=== PATIENT | female | born 1965 | race Two or more races ===

== ENCOUNTER 2024-08-23 19:29 | Observation (INO) ==
--- NOTE | 2024-08-23 20:02 | DR.AMS ---
HPI Time Seen Time Seen by Provider: 08/23/24 20:01 PCP Primary Care Physician: PHILL VERNON HPI Comment HPI Comment: History as below. Complaint Cheif Complaint Doctors Comments: Patient is 59yr old female in ER via EMS. Her friend said patient has been coughing and has been confused for 4 days. Patient is worse today. He is not running fever, no vomiting, diarrhea or dysuria. She is weak and fatigue. Chief Complaint:: PT AMBULATORY IN ED WITH FRIEND STATING PT HAS BEEN COUGHING AND CONFUSED FOR THE PAST 4 DAYS. COVID-19 Coronavirus risk:travel/contact w/high risk person: No Has patient experienced Coronavirus symptoms: Yes Coronavirus symptoms experienced: Coughing Reviewed Nurses Notes Reviewed: Yes Source History Provided: Patient Mode of Arrival Mode of Arrival: Ambulatory Timing Onset of Chief Complaint: 08/19/24 PMH PMH Past Medical History: Yes Past Medical History: Anxiety, Arthritis and Depression Past Surgical History: Yes Surgical History: Tonsillectomy Family History History of Family Medical Conditions: Yes Family Medical History: Cancer Social History Does patient currently use any type of tobacco product: No Have you used tobacco products in the last 12 months: No Type of Tobacco Use: None Does any household member use tobacco: No Alcohol Use: None Do you use any recreational Drugs:: Yes (MARIJUANA) Lives With: Friend Lives Where: Home Travel Risk Coronavirus risk:travel/contact w/high risk person: No Has patient experienced Coronavirus symptoms: Yes Coronavirus symptoms experienced: Coughing Infectious screening In the last 2 months have you had wt loss of >10#?: NO Have you had fever, night sweats or hemotysis?: No Have you traveled outside the country in the last 6 months?: No Isolation: Standard ROS Review of Systems Constitutional: Weakness and Fatigue; negative Fever Eyes: No Symptoms Reported ENTM: Nose Discharge and Nose Congestion; negative Throat Pain Respiratoy: Productive Cough; negative Wheezing Cardiovascular: No Symptoms Reported; negative Chest Pain Gastrointestinal/Abdominal: negative Abdominal Pain, Diarrhea, Nausea or Vomiting Genitourinary: No Symptoms Reported; negative Dysuria Neurological: Weakness; negative Headache or Dizziness Musculoskeletal: No Symptoms Reported; negative Muscle Pain Integumentary: No Symptoms Reported; negative Rash or Juandice Hematologic/Lymphatic: No Symptoms Reported; negative Easy Bruising Endocrine: No Symptoms Reported; negative Increased Thirst or Increased Urine Psychiatric: No Symptoms Reported All Other Systems: Reviewed and Negative PE Vitals Vital Signs: Temp Pulse Resp BP Pulse Ox O2 Del Method 08/24/24 06:00 64 97 08/24/24 06:00 149/73 08/24/24 05:45 80 97 08/24/24 05:30 141/65 08/24/24 05:30 68 97 08/24/24 05:15 69 97 08/24/24 05:00 79 97 08/24/24 05:00 137/66 08/24/24 04:58 76 98 08/24/24 04:58 133/65 08/24/24 04:57 80 97 08/24/24 04:57 157/74 08/24/24 04:56 80 99 08/24/24 02:30 141/65 08/24/24 02:26 79 98 08/24/24 02:15 70 98 08/24/24 02:00 65 98 08/24/24 02:00 146/67 08/24/24 01:59 64 98 08/24/24 01:58 74 99 08/24/24 01:58 134/63 08/23/24 19:30 98.3 F 73 20 147/74 99 Room Air General Limitations: No Limitations General Appearance: Alert and In No Apparent Distress Head Head Exam: Normal Inspection and Atraumatic Head Exam Physical: Other (None noted.) Eyes Eye exam: Normal Appearance; negative Scleral Icterus or Conjunctival Injection Pupils: Regular, Round: Bilateral and Reactive: Bilateral ENT ENT Exam: Normal Exam and Normal External Ear Exam; negative Normal Oropharynx or TM's Normal Bilaterally Neck Neck Exam: Normal Inspection and Trachea Midline; negative Tenderness Chest Chest Inspection: Normal Inspection and Symmetric Chest Wall Rise Respiratory Respiratory Exam: Normal Lung Sounds Bilat; negative Accessory Muscle Use, Chest Wall Tenderness or Respiratory Distress Respiratory Exam: Bilateral: Rhonchi Cardiovascular Cardiovascular Exam: Regular Rate, Normal Rhythm and Normal Heart Sounds; negative Systolic Murmur or Diastolic Murmur Abdominal Exam Abdominal Exam: Normal Inspection, Normal Bowel Sounds and Soft; negative T enderness Extremities Extremities Exam: Normal Inspection and Normal Capillary Refill Back Back Exam: Normal Inspection; negative (R) CVA Tenderness or (L) CVA Tenderness Neurological Neurological Exam: Alert and Oriented X3; negative Motor Sensory Deficit Patient Oriented To: Person; negative Place or Time Speech: Fluid Speech Cranial Nerve Exam: EOM Function (II, III, IV, ): Normal, Facial Sensation (V): Normal, Facial Palsy (VII): Normal, Gag reflex (XI): Normal, Spinal A ccessory Function (XI): Normal and Tongue Deviation: Normal Motor Strength - LUE: 5/5 Motor Strength - RUE: 5/5 Motor Strength - LLE: 5/5 Motor Strength - RLE: 5/5 Upper Motor Neuron Exam: Babinski Sign: Normal Psychological Psychiatric Exam: Normal Affect Skin Skin Exam: Warm and Intact MDM Differential Diagnosis Metabolic: Dehydration, Hypercalcemia, Hypernatremia, Hypoglycemia and Hyponatremia Structural: CVA and Mass Lesion Infectious: UTI COURSE Treatment Treatment: See orders done while patient was in ER. Consultation Consultation Comments: DISCUSSED PATIENT WITH Dr. Quevedo. She will admit patient. Education/Counseling Education/Counseling: Patient Educated On: Treatment and Diagnosis ROR Labs Reviewed Laboratory Results Reviewed?: Yes 08/25/24 06:35 08/25/24 06:35 Laboratory: 08/23/24 20:18 Blood Blood Culture - Final 08/23/24 20:10 Blood Blood Culture - Final WBC 7.8 X10^3/uL (3.6-10.0) 08/23/24 20:10 RBC 4.28 X10^6/uL (3.5-5.4) 08/23/24 20:10 Hgb 13.0 g/dL (12.0-16.0) 08/23/24 20:10 Hct 37.1 % (36.0-47.0) 08/23/24 20:10 MCV 86.7 fL (80.0-100.0) 08/23/24 20:10 MCH 30.5 pg (27.0-34.0) 08/23/24 20:10 MCHC 35.1 g/dL (33.0-35.0) H 08/23/24 20:10 RDW 13.3 % (11.6-16.5) 08/23/24 20:10 Plt Count 253 X10^3/uL (150.0-450.0) 08/23/24 20:10 MPV 7.1 fL (7.4-11.0) L 08/23/24 20:10 Neut % (Auto) 54.2 % (42.0-75.0) 08/23/24 20:10 Lymph % (Auto) 31.2 % (21.0-51.0) 08/23/24 20:10 [place] % (Auto) 13.9 % (0.0-13.0) H 08/23/24 20:10 Eos % (Auto) 0.1 % (0.9-2.9) L 08/23/24 20:10 Baso % (Auto) 0.6 % (0.2-1.0) 08/23/24 20:10 Neut # (Auto) 4.2 x10^3/uL (2.2-4.8) 08/23/24 20:10 Lymph # (Auto) 2.4 X10^3/uL (1.3-2.9) 08/23/24 20:10 [place] # (Auto) 1.1 x10^3/uL (0.3-0.8) H 08/23/24 20:10 Eos # (Auto) 0.0 x10^3/uL (0.0-0.2) 08/23/24 20:10 Baso # (Auto) 0.0 X10^3/uL (0.0-0.1) 08/23/24 20:10 Absolute Nucleated RBC 0.1 /100WBC 08/23/24 20:10 Sodium 140 mmol/L (136-145) 08/23/24 21:05 Corrected Sodium 140 mmol/L (136-145) 08/23/24 21:05 Potassium 2.9 mmol/L (3.5-5.1) L* 08/23/24 21:05 Chloride 101 mmol/L (98-107) 08/23/24 21:05 Carbon Dioxide 24.9 mmol/L (21-32) 08/23/24 21:05 BUN 16 mg/dL (7-18) 08/23/24 21:05 Creatinine 0.79 mg/dL (0.55-1.02) 08/23/24 21:05 Est GFR (MDRD) Af Amer > 60 (>60) 08/23/24 21:05 Est GFR (MDRD) Non-Af > 60 (>60) 08/23/24 21:05 Glucose 111 mg/dL (65-99) H 08/23/24 21:05 Lactic Acid 1.1 mmol/L (0.4-2.0) 08/23/24 20:10 Calcium 9.6 mg/dL (8.5-10.1) 08/23/24 21:05 Corrected Calcium TNP 08/23/24 21:05 Total Bilirubin 1.20 mg/dL (0.2-1.0) H 08/23/24 21:05 AST 24 Units/L (15-37) 08/23/24 21:05 ALT 33 Units/L (12-78) 08/23/24 21:05 Alkaline Phosphatase 87 Units/L (46-116) 08/23/24 21:05 Total Protein 8.3 g/dL (6.4-8.2) H 08/23/24 21: Albumin 4.3 g/dL (3.4-5.0) 08/23/24 21: Globulin 4.0 g/dL (2.5-4.5) 08/23/24 21:05 Albumin/Globulin Ratio 1.1 Ratio (1.1-2.1) 08/23/24 21:05 Specimen Type Catherized urine 08/23/24 20: Urine Color Yellow (YELLOW) 08/23/24: Urine Appearance Clear (CLEAR) 08/23/24: Urine pH 6.0 (5.0 - 8.0) 08/23/24 20: Ur Specific [place] 1.025 (1.000-1.030) 08/23/24 20: Urine Protein 2+ (NEGATIVE) 08/23/24: Urine Glucose (UA) Negative (NEGATIVE) 08/23/24: Urine Ketones 3+ (NEGATIVE) 08/23/24 20: Urine Blood 2+ (NEGATIVE) 08/23/24: Urine Nitrite Negative (NEGATIVE) 08/23/24: Urine Bilirubin Negative (NEGATIVE) 08/23/24 20: Urine Urobilinogen 1+ (NORMAL) 08/23/24 20: Ur Leukocyte Esterase 1+ (NEGATIVE) 08/23/24 20: Urine RBC None seen /HPF (0-3) 08/23/24: Urine WBC 0-2 /HPF (0-5) 08/23/24 20:26 Ur Squamous Epith Cells Few /HPF (NEGATIVE) 08/23/24 20:26 Urine Bacteria Trace /HPF (NEGATIVE) 08/23/24 20:26 Ur Culture Indicated? No/not indicated 08/23/24 20: Urine Opiates Screen Negative (NEG=<300) 08/23/24 20: Urine Methadone Screen Negative (NEG=<300) 08/23/24 20:26 Ur Barbiturates Screen Negative (NEG=<200) 08/23/24 20: Ur Phencyclidine Scrn Negative (NEG=<25) 08/23/24 20:26 Ur Amphetamines Screen Negative (NEG=<1000) 08/23/24 20: U Benzodiazepines Scrn Negative (NEG=<200) 08/23/24 20: Urine Cocaine Screen Negative (NEG=<300) 08/23/24 20: U Marijuana (THC) Screen Positive (NEG=<50) A 08/23/24 20:26 SARS-CoV-2 (PCR) Negative (NEGATIVE) 08/23/24 20: Influenza Type A (PCR) Negative (NEGATIVE) 08/23/24 20: Influenza Type B (PCR) Negative (NEGATIVE) 08/23/24 20: RSV (PCR) Negative (NEGATIVE) 08/23/24 20: XRAY XRAY Interpreted by: Radiologist (Report noted.) and Self Opioid Opioid Risk Tool Age (Juan box if 16-45): No History of Preadolescent Sexual Abuse: No Total: 0 Total Score Risk Category: Low Risk Copyright: [facility] predicting aberrant behaviors Discharge Plan Diagnosis Discharge Problem: SOB (shortness of breath), Hypokalemia AMS (altered mental status) Qualifiers: Altered mental status type: transient alteration of awareness Qualified Code(s): R40.4 - Transient alteration of awareness Discharge Plan Patient Disposition: 09 ADMITTED INPATIENT Condition: Stable Prescription drug monitoring program results: PDMP reviewed and no concerns identified Orders to Discharge Patient Discharge Orders: Discharge (Routine); Ordered 08/25/24 Ordered By: Rhonda Quevedo
[2024-08-23] MEDS: NS 1,000 ML IV 1,000 ML IV ONE (20:35)
[2024-08-23 20:44] LABS: EOSINOPHILS % (AUTO) 0.1 % (0.9-2.9); RED CELL DISTRIBUTION WIDTH 13.3 % (11.6-16.5)
[2024-08-23 20:53] LABS: ALANINE AMINOTRANSFERASE 33 Units/L (12-78); ALBUMIN 4.3 g/dL (3.4-5.0); ALKALINE PHOSPHATASE 87 Units/L (46-116); ASPARTATE AMINO TRANSFERASE 24 Units/L (15-37); BLOOD UREA NITROGEN 16 mg/dL (7-18); CALCIUM 9.6 mg/dL (8.5-10.1); CARBON DIOXIDE 24.9 mmol/L (21-32); CHLORIDE 101 mmol/L (98-107); COR NA(FOR HYPERGLY) 140 mmol/L (136-145); CREATININE 0.79 mg/dL (0.55-1.02); GLUCOSE 111 mg/dL (65-99); SODIUM 140 mmol/L (136-145); TOTAL PROTEIN 8.3 g/dL (6.4-8.2); eGFR NON BLACK RACES > 60 (>60)
[2024-08-23 20:56] LABS: BILIRUBIN,URINE NEGATIVE (NEGATIVE); BLOOD/HEMOGLOBIN,URINE 2+ (NEGATIVE); GLUCOSE, URINE NEGATIVE (NEGATIVE); KETONES,URINE 3+ (NEGATIVE); LEUKOCYTE ESTERASE ,URINE 1+ (NEGATIVE); NITRITES,URINE NEGATIVE (NEGATIVE); PROTEIN,URINE 2+ (NEGATIVE); UROBILINOGEN,URINE 1+ (NORMAL)
[2024-08-23 21:08] LABS: POTASSIUM 2.9 mmol/L (3.5-5.1)
[2024-08-23 21:10] LABS: BASOPHILS % (AUTO) 0.6 % (0.2-1.0); HEMATOCRIT 37.1 % (36.0-47.0); LYMPHOCYTES # (AUTO) 2.4 X10^3/uL (1.3-2.9); LYMPHOCYTES % (AUTO) 31.2 % (21.0-51.0); MEAN CORPUSCULAR HEMOGLOBIN 30.5 pg (27.0-34.0); MEAN CORPUSCULAR HGB CONC 35.1 g/dL (33.0-35.0); MEAN CORPUSCULAR VOLUME 86.7 fL (80.0-100.0); MEAN PLATELET VOLUME 7.1 fL (7.4-11.0); MONOCYTES # (AUTO) 1.1 x10^3/uL (0.3-0.8); MONOCYTES % (AUTO) 13.9 % (0.0-13.0); NEUTROPHILS # (AUTO) 4.2 x10^3/uL (2.2-4.8); NEUTROPHILS % (AUTO) 54.2 % (42.0-75.0); PLATELET COUNT 253 X10^3/uL (150.0-450.0); RED BLOOD COUNT 4.28 X10^6/uL (3.5-5.4); WHITE BLOOD COUNT 7.8 X10^3/uL (3.6-10.0)
--- NOTE | 2024-08-23 21:14 | RAD ---
EXAM: FRONTAL VIEW CHEST X-RAY HISTORY: Short of breath COMPARISON: None. FINDINGS: Overlying soft tissue attenuation is noted. No focal consolidation is seen. The heart size is within normal limits. The mediastinum is unremarkable. There is no evidence of pleural effusion or gross pneumothorax. The trachea is midline. IMPRESSION: No focal consolidation is seen. The heart size is normal. THIS IS AN ELECTRONICALLY VERIFIED FINAL REPORT 08/23/2024 9:11 PM - Electronically signed by Chace Jones MD
[2024-08-23] MEDS: NS + KCL 20 MEQ/L 1,000 ML IV ONE (21:18)
[2024-08-23 21:20] LABS: APPEARANCE,URINE CLEAR (CLEAR); COLOR,URINE YELLOW (YELLOW)
[2024-08-23 21:21] LABS: BACTERIA,URINE TRACE /HPF (NEGATIVE); RBC,URINE NONE SEEN /HPF (0-3); SQUAMOUS EPITHELIAL CELL,UR FEW /HPF (NEGATIVE)
[2024-08-23] MEDS ORDERED: NS 1/2 + KCL 20 MEQ/L 1,000 ML IV SCH (22:00)
--- NOTE | 2024-08-24 00:14 | CT ---
PROCEDURE: CT Head without IV Contrast. HISTORY: AMS; PT IS DISORIENTED AND CONFUSED. . TECHNIQUE: Axial images were performed through the head without the administration of IV contrast wit h multiplanar reformations . Dose reduction techniques including Automated Exposure Control (AEC) and adjustment of mA and kV were utilized . COMPARISON: None. TECHNICAL QUALITY: Satisfactory. FINDINGS: Brain shows no mass, hemorrhage, or acute stroke. Mild periventricular old micro ischemic changes. Normal-sized ventricles for patient's age. No acute skull or scalp abnormality. Visualized sinuses and mastoids are clear. IMPRESSION: No acute intracranial abnormality. Mild senescent changes. THIS IS AN ELECTRONICALLY VERIFIED FINAL REPORT 08/24/2024 12:11 AM - Electronically signed by Wesly Sinha MD
[2024-08-24] MEDS: NS + KCL 20 MEQ/L 1,000 ML IV ONE (07:38)
[2024-08-24] MEDS: ZOFRAN INJ 4 MG VIAL IVP PRN (07:44)
[2024-08-24 08:36] VITALS: BMI 27.9
[2024-08-24] MEDS ORDERED: PHENERGAN INJ 25 MG IM ONE (09:33)
[2024-08-24] MEDS: PHENERGAN INJ 25 MG IM PRN (09:40)
[2024-08-24 09:41] LABS: BASOPHILS % (AUTO) 0.6 % (0.2-1.0); EOSINOPHILS % (AUTO) 0.3 % (0.9-2.9); HEMATOCRIT 38.1 % (36.0-47.0); HEMOGLOBIN 13.1 g/dL (12.0-16.0); LYMPHOCYTES # (AUTO) 2.1 X10^3/uL (1.3-2.9); LYMPHOCYTES % (AUTO) 29.6 % (21.0-51.0); MEAN CORPUSCULAR HGB CONC 34.4 g/dL (33.0-35.0); MEAN CORPUSCULAR VOLUME 87.4 fL (80.0-100.0); MEAN PLATELET VOLUME 7.2 fL (7.4-11.0); MONOCYTES # (AUTO) 0.9 x10^3/uL (0.3-0.8); MONOCYTES % (AUTO) 12.4 % (0.0-13.0); NEUTROPHILS # (AUTO) 4.1 x10^3/uL (2.2-4.8); NEUTROPHILS % (AUTO) 57.1 % (42.0-75.0); PLATELET COUNT 247 X10^3/uL (150.0-450.0); RED BLOOD COUNT 4.36 X10^6/uL (3.5-5.4); RED CELL DISTRIBUTION WIDTH 13.1 % (11.6-16.5); WHITE BLOOD COUNT 7.2 X10^3/uL (3.6-10.0)
[2024-08-24 09:49] LABS: ALANINE AMINOTRANSFERASE 32 Units/L (12-78); ALBUMIN 3.8 g/dL (3.4-5.0); ALKALINE PHOSPHATASE 81 Units/L (46-116); ASPARTATE AMINO TRANSFERASE 18 Units/L (15-37); BLOOD UREA NITROGEN 12 mg/dL (7-18); CALCIUM 8.9 mg/dL (8.5-10.1); CARBON DIOXIDE 27.5 mmol/L (21-32); CHLORIDE 103 mmol/L (98-107); COR NA(FOR HYPERGLY) 141 mmol/L (136-145); GLUCOSE 117 mg/dL (65-99); POTASSIUM 3.2 mmol/L (3.5-5.1); SODIUM 141 mmol/L (136-145); TOTAL PROTEIN 7.5 g/dL (6.4-8.2); eGFR NON BLACK RACES > 60 (>60)
[2024-08-24] MEDS ORDERED: NS 1,000 ML IV 1,000 ML ONE (10:41)
[2024-08-24] MEDS ORDERED: PEPCID 20 MG VIAL ONE (10:42)
[2024-08-24] MEDS: NS 1,000 ML IV 1,000 ML IV SCH (10:48)
[2024-08-24] MEDS: PEPCID 20 MG VIAL 20 MG in NS 50 ML IV 50 ML IV SCH (10:48)
--- NOTE | 2024-08-24 10:55 | DR.H&P ---
H&P History & Physical for Day of: H&P Date: 08/24/24 Chief Complaint Chief Complaint: AMS History of Present Illness History of Present Illness: Ms Fuchs is a 59y/o female with a PMH of ASAD, MDD, arthritis presented with AMS and N/V. She reports being sick for the past few days with nausea. She was noted to be confused on admission. ER work up showed normal CT-brain and CXR. Labs showed K 2.9, UA was negative. Patient continued to be drowsy so was admitted for further management. She does take a combination of meds that can cause lethargy and sedation. This morning, she is resting, complains about being nauseous, phenergan was given. Denies diarrhea or abdominal pain. She is more alert and able to answer questions. She denied taking any of her home meds yesterday. Labs/imaging reviewed: -Hgb 13.1 K 3.2 Cr 0.60 Glucose 117 -CT-brain (-) -CXR (-) -UA (-) Plan: will continue monitoring, start gentle hydration. Add zofran prn. Add famotidine. Change diet to full liquids. Will hold off on home meds until patient is more awake and alert. Replace electrolytes as per protocol. Monitor AM labs/imaging. Past Medical History Past Medical History: Anxiety, Arthritis and Depression Past Surgical History Surgical History: Tonsillectomy Family History Family Medical History: Cancer Social History Does patient currently use any type of tobacco product: No Have you used tobacco products in the last 12 months: No Type of Tobacco Use: None Does any household member use tobacco: No Alcohol Use: None Drug Use: Marijuana Medications Home Medications: Home Medications Medication Instructions Recorded Confirmed Type clonazepam 0.5 mg tablet 0.5 mg PO TID 08/23/24 08/23/24 History gabapentin 600 mg tablet 60 mg PO DAILY 08/23/24 08/23/24 History oxybutynin chloride 10 mg 10 mg PO DAILY 08/23/24 08/23/24 History tablet,extended release 24 hr pregabalin 75 mg capsule 75 mg PO BID pain 08/23/24 08/23/24 History quetiapine 50 mg tablet 50 mg PO BID 08/23/24 08/23/24 History venlafaxine 150 mg 150 mg PO QAM anxiety 08/23/24 08/23/24 History capsule,extended release 24 hr venlafaxine 75 mg tablet,extended 75 mg PO QAM anxiety 08/23/24 08/23/24 History release 24 hr Allergies Allergies Allergy/AdvReac Type Severity Reaction Status Date / Time No Known Allergies Allergy Verified 08/24/24 07:41 Labs 08/24/24 09:30 08/24/24 09:30 Labs: Laboratory WBC 7.2 X10^3/uL (3.6-10.0) 08/24/24 09:30 RBC 4.36 X10^6/uL (3.5-5.4) 08/24/24 09:30 Hgb 13.1 g/dL (12.0-16.0) 08/24/24 09:30 Hct 38.1 % (36.0-47.0) 08/24/24 09:30 MCV 87.4 fL (80.0-100.0) 08/24/24 09:30 MCH 30.0 pg (27.0-34.0) 08/24/24 09:30 MCHC 34.4 g/dL (33.0-35.0) 08/24/24 09:30 RDW 13.1 % (11.6-16.5) 08/24/24 09:30 Plt Count 247 X10^3/uL (150.0-450.0) 08/24/24 09:30 MPV 7.2 fL (7.4-11.0) L 08/24/24 09:30 Neut % (Auto) 57.1 % (42.0-75.0) 08/24/24 09:30 Lymph % (Auto) 29.6 % (21.0-51.0) 08/24/24 09:30 [place] % (Auto) 12.4 % (0.0-13.0) 08/24/24 09:30 Eos % (Auto) 0.3 % (0.9-2.9) L 08/24/24 09:30 Baso % (Auto) 0.6 % (0.2-1.0) 08/24/24 09:30 Neut # (Auto) 4.1 x10^3/uL (2.2-4.8) 08/24/24 09:30 Lymph # (Auto) 2.1 X10^3/uL (1.3-2.9) 08/24/24 09:30 [place] # (Auto) 0.9 x10^3/uL (0.3-0.8) H 08/24/24 09:30 Eos # (Auto) 0.0 x10^3/uL (0.0-0.2) 08/24/24 09:30 Baso # (Auto) 0.0 X10^3/uL (0.0-0.1) 08/24/24 09:30 Absolute Nucleated RBC 0.0 /100WBC 08/24/24 09:30 Sodium 141 mmol/L (136-145) 08/24/24 09:30 Corrected Sodium 141 mmol/L (136-145) 08/24/24 09:30 Potassium 3.2 mmol/L (3.5-5.1) L 08/24/24 09:30 Chloride 103 mmol/L (98-107) 08/24/24 09:30 Carbon Dioxide 27.5 mmol/L (21-32) 08/24/24 09:30 BUN 12 mg/dL (7-18) 08/24/24 09:30 Creatinine 0.60 mg/dL (0.55-1.02) 08/24/24 09:30 Est GFR (MDRD) Af Amer > 60 (>60) 08/24/24 09:30 Est GFR (MDRD) Non-Af > 60 (>60) 08/24/24 09:30 Glucose 117 mg/dL (65-99) H 08/24/24 09:30 Lactic Acid 1.1 mmol/L (0.4-2.0) 08/23/24 20:10 Calcium 8.9 mg/dL (8.5-10.1) 08/24/24 09:30 Corrected Calcium TNP 08/24/24 09:30 Total Bilirubin 0.90 mg/dL (0.2-1.0) 08/24/24 09:30 AST 18 Units/L (15-37) 08/24/24 09:30 ALT 32 Units/L (12-78) 08/24/24 09:30 Alkaline Phosphatase 81 Units/L (46-116) 08/24/24 09:30 Total Protein 7.5 g/dL (6.4-8.2) 08/24/24 09:30 Albumin 3.8 g/dL (3.4-5.0) 08/24/24 09:30 Globulin 3.7 g/dL (2.5-4.5) 08/24/24 09:30 Albumin/Globulin Ratio 1.0 Ratio (1.1-2.1) L 08/24/24 09:30 Specimen Type Catherized urine 08/23/24 20: Urine Color Yellow (YELLOW) 08/23/24: Urine Appearance Clear (CLEAR) 08/23/24 20: Urine pH 6.0 (5.0 - 8.0) 08/23/24 20: Ur Specific [place] 1.025 (1.000-1.030) 08/23/24: Urine Protein 2+ (NEGATIVE) 08/23/24: Urine Glucose (UA) Negative (NEGATIVE) 08/23/24: Urine Ketones 3+ (NEGATIVE) 08/23/24: Urine Blood 2+ (NEGATIVE) 08/23/24: Urine Nitrite Negative (NEGATIVE) 08/23/24: Urine Bilirubin Negative (NEGATIVE) 08/23/24: Urine Urobilinogen 1+ (NORMAL) 08/23/24: Ur Leukocyte Esterase 1+ (NEGATIVE) 08/23/24: Urine RBC None seen /HPF (0-3) 08/23/24 20: Urine WBC 0-2 /HPF (0-5) 08/23/24 20: Ur Squamous Epith Cells Few /HPF (NEGATIVE) 08/23/24: Urine Bacteria Trace /HPF (NEGATIVE) 08/23/24 20: Ur Culture Indicated? No/not indicated 08/23/24 Urine Opiates Screen Negative (NEG=<300) 08/23/24: Urine Methadone Screen Negative (NEG=<300) 08/23/24: Ur Barbiturates Screen Negative (NEG=<200) 08/23/24 20: Ur Phencyclidine Scrn Negative (NEG=<25) 08/23/24 20: Ur Amphetamines Screen Negative (NEG=<1000) 08/23/24: U Benzodiazepines Scrn Negative (NEG=<200) 02/01/25 20:26 Urine Cocaine Screen Negative (NEG=<300) 08/23/24 20:26 U Marijuana (THC) Screen Positive (NEG=<50) A 08/23/24 20:26 SARS-CoV-2 (PCR) Negative (NEGATIVE) 08/23/24 20:26 Influenza Type A (PCR) Negative (NEGATIVE) 08/23/24 20:26 Influenza Type B (PCR) Negative (NEGATIVE) 08/23/24 20:26 RSV (PCR) Negative (NEGATIVE) 08/23/24 20:26 Review of Systems Constitutional: Weakness Eyes: No Symptoms Reported ENT: No Symptoms Reported Respiratory: Cough Cardiovascular: No Symptoms Reported Gastrointestinal: Nausea and Vomiting Genitourinary: No Symptoms Reported Musculoskeletal: No Symptoms Reported Skin: No Symptoms Reported Neurological: Confusion Physical Exam Vital Signs: Vital Signs Temperature 98.5 F Pulse Rate 78 Pulse Rate 102 Pulse Rate 87 Pulse Rate 70 Pulse Rate 66 Pulse Rate 68 Pulse Rate 72 Pulse Rate 73 Pulse Rate 92 Pulse Rate 73 Pulse Rate 64 Pulse Rate 80 Pulse Rate 68 Pulse Rate 69 Pulse Rate 79 Pulse Rate 76 Pulse Rate 80 Pulse Rate 80 Respiratory Rate 22 Respiratory Rate 34 Respiratory Rate 20 Respiratory Rate 13 Respiratory Rate 18 Respiratory Rate 16 Respiratory Rate 14 Respiratory Rate 12 Respiratory Rate 20 Respiratory Rate 15 Respiratory Rate 20 Blood Pressure 150/75 Blood Pressure 148/70 Blood Pressure 152/72 Blood Pressure 149/73 Blood Pressure 141/65 Blood Pressure 137/66 Blood Pressure 133/65 Blood Pressure 157/74 O2 Sat by Pulse Oximetry 96 O2 Sat by Pulse Oximetry 95 O2 Sat by Pulse Oximetry 96 O2 Sat by Pulse Oximetry 95 O2 Sat by Pulse Oximetry 95 O2 Sat by Pulse Oximetry 93 O2 Sat by Pulse Oximetry 91 O2 Sat by Pulse Oximetry 96 O2 Sat by Pulse Oximetry 97 O2 Sat by Pulse Oximetry 97 O2 Sat by Pulse Oximetry 97 O2 Sat by Pulse Oximetry 97 O2 Sat by Pulse Oximetry 97 O2 Sat by Pulse Oximetry 97 O2 Sat by Pulse Oximetry 97 O2 Sat by Pulse Oximetry 98 O2 Sat by Pulse Oximetry 97 O2 Sat by Pulse Oximetry 99 Oriented: Normal Eyes: Normal Nose: Normal Throat: Normal Respiratory: Clear Throughout Cardiovascular: Normal Auscultation: Bowel Sounds: Normal Palpation: Normal Tenderness: Normal Skin: Decreased [place] Musculoskeletal: Normal Psychiatric: Normal Mood Description: Calm Affect: Normal Speech Pattern: Clear and Appropriate Assessment/Plan (1) Nausea & vomiting: Qualifiers: Vomiting type: unspecified Qualified Code(s): R11.2 - Nausea with vomiting, unspecified Status: Acute (2) AMS (altered mental status): Qualifiers: Altered mental status type: transient alteration of awareness Qualified Code(s): R40.4 - Transient alteration of awareness Status: Acute (3) Hypokalemia: Status: Acute Review H&P Reviewed: Yes Patient was examined?: Yes
[2024-08-24] MEDS: KLONOPIN TAB 0.5 MG PO SCH (14:12)
[2024-08-24] MEDS: SEROquel TAB 25 mg PO SCH (14:12)
[2024-08-24] MEDS: KLONOPIN TAB 0.5 MG ONE (14:47)
[2024-08-24] MEDS: SEROquel TAB 25 mg PO ONE (14:48)
[2024-08-24] MEDS: NORCO 5/325 MG TAB PO PRN (14:52)
[2024-08-24] MEDS: NORCO 5/325 MG TAB ONE (14:59)
[2024-08-24] MEDS: ALPRAZOLAM ODT PO PRN (20:21)
[2024-08-24] MEDS ORDERED: ATIVAN INJ 2 MG VIAL IVP SCH (22:00)
[2024-08-25 07:06] LABS: BASOPHILS % (AUTO) 0.6 % (0.2-1.0); EOSINOPHILS # (AUTO) 0.1 x10^3/uL (0.0-0.2); EOSINOPHILS % (AUTO) 1.2 % (0.9-2.9); HEMATOCRIT 37.4 % (36.0-47.0); HEMOGLOBIN 12.9 g/dL (12.0-16.0); LYMPHOCYTES # (AUTO) 3.1 X10^3/uL (1.3-2.9); LYMPHOCYTES % (AUTO) 40.7 % (21.0-51.0); MEAN CORPUSCULAR HEMOGLOBIN 30.4 pg (27.0-34.0); MEAN CORPUSCULAR HGB CONC 34.5 g/dL (33.0-35.0); MEAN CORPUSCULAR VOLUME 88.2 fL (80.0-100.0); MONOCYTES # (AUTO) 1.1 x10^3/uL (0.3-0.8); MONOCYTES % (AUTO) 14.9 % (0.0-13.0); NEUTROPHILS # (AUTO) 3.2 x10^3/uL (2.2-4.8); NEUTROPHILS % (AUTO) 42.6 % (42.0-75.0); PLATELET COUNT 226 X10^3/uL (150.0-450.0); RED BLOOD COUNT 4.24 X10^6/uL (3.5-5.4); RED CELL DISTRIBUTION WIDTH 13.3 % (11.6-16.5); WHITE BLOOD COUNT 7.5 X10^3/uL (3.6-10.0)
[2024-08-25 07:27] LABS: PLATELET MORPHOLOGY COMMENT NORMAL (NORMAL)
[2024-08-25 07:51] LABS: ALANINE AMINOTRANSFERASE 31 Units/L (12-78); ALBUMIN 3.5 g/dL (3.4-5.0); ALKALINE PHOSPHATASE 77 Units/L (46-116); ASPARTATE AMINO TRANSFERASE 23 Units/L (15-37); BLOOD UREA NITROGEN 9 mg/dL (7-18); CALCIUM 8.9 mg/dL (8.5-10.1); CARBON DIOXIDE 26.5 mmol/L (21-32); CHLORIDE 106 mmol/L (98-107); CREATININE 0.68 mg/dL (0.55-1.02); GLUCOSE 91 mg/dL (65-99); POTASSIUM 3.1 mmol/L (3.5-5.1); SODIUM 143 mmol/L (136-145); eGFR NON BLACK RACES > 60 (>60)
[2024-08-25] MEDS: K-DUR TAB 20 MEQ PO SCH (09:08)
[2024-08-25] MEDS ORDERED: COLACE CAP 100 MG PO PRN (09:17)
[2024-08-25] MEDS ORDERED: MILK OF MAGNESIA PO PRN (09:17)
[2024-08-25 12:11] VITALS: BP 119/61; PULSE 83; RESP 11; TEMP 97.7; O2SAT 100
--- NOTE | 2024-09-05 10:03 | W.DIS.FURT ---
Summary of Discharge Discharge Summary of Date Date of Exam: 08/25/24 Admission Date Date of Admission: 08/24/24 Admission Diagnosis Patient Problems (Updated 08/24/24 @ 02:28 by ALESSANDRA SHAHID) AMS (altered mental status) (Acute) R41.82 SOB (shortness of breath) (Acute) R06.02 Hypokalemia (Acute) E87.6 Hospital Course: Ms Fuchs is a 59y/o female with a PMH of ASAD, MDD, arthritis presented with AMS and N/V. She reports being sick for the past few days with nausea. She was noted to be confused on admission. ER work up showed normal CT-brain and CXR. Labs showed K 2.9, UA was negative. Patient continued to be drowsy so was admitted for further management. She does take a combination of meds that can cause lethargy and sedation. This morning, she is resting, complains about being nauseous, phenergan was given. Denies diarrhea or abdominal pain. She is more alert and able to answer questions. She denied taking any of her home meds yesterday. She was initially started on clear liquids and diet was advanced as tolerated. Her labs were monitored daily and electrolytes replaced as needed. Patient's home medications were resumed when she was more awake and alert. She was tolerating oral intake. She was stable to be discharged home and follow-up with PCP Vital Signs: Vital Signs (72 hours) 08/23/24 19:30 08/24/24 01:58 08/24/24 01:58 Temperature 98.3 F Pulse Rate 73 74 Respiratory Rate 20 Blood Pressure 147/74 134/63 O2 Sat by Pulse Oximetry 99 99 Oxygen Delivery Method Room Air Oxygen Flow Rate FIO2% 08/24/24 01:59 08/24/24 02:00 08/24/24 02:00 Temperature Pulse Rate 64 65 Respiratory Rate Blood Pressure 146/67 O2 Sat by Pulse Oximetry 98 98 Oxygen Delivery Method Oxygen Flow Rate FIO2% 08/24/24 02:15 08/24/24 02:26 08/24/24 02:30 Temperature Pulse Rate 70 79 Respiratory Rate Blood Pressure 141/65 O2 Sat by Pulse Oximetry 98 98 Oxygen Delivery Method Oxygen Flow Rate FIO2% 08/24/24 04:56 08/24/24 04:57 08/24/24 04:57 Temperature Pulse Rate 80 80 Respiratory Rate Blood Pressure 157/74 O2 Sat by Pulse Oximetry 99 97 Oxygen Delivery Method Oxygen Flow Rate FIO2% 08/24/24 04:58 08/24/24 04:58 08/24/24 05:00 Temperature Pulse Rate 76 Respiratory Rate Blood Pressure 133/65 137/66 O2 Sat by Pulse Oximetry 98 Oxygen Delivery Method Oxygen Flow Rate FIO2% 08/24/24 05:00 08/24/24 05:15 08/24/24 05:30 Temperature Pulse Rate 79 69 68 Respiratory Rate Blood Pressure O2 Sat by Pulse Oximetry 97 97 97 Oxygen Delivery Method Oxygen Flow Rate FIO2% 08/24/24 05:30 08/24/24 05:45 08/24/24 06:00 Temperature Pulse Rate 80 Respiratory Rate Blood Pressure 141/65 149/73 O2 Sat by Pulse Oximetry 97 Oxygen Delivery Method Oxygen Flow Rate FIO2% 08/24/24 06:00 08/24/24 07:13 08/24/24 06:30 Temperature Pulse Rate 64 Respiratory Rate 20 Blood Pressure 152/72 O2 Sat by Pulse Oximetry 97 Oxygen Delivery Method Oxygen Flow Rate FIO2% 08/24/24 07:00 08/24/24 07:40 08/24/24 07:23 Temperature 98.5 F Pulse Rate Respiratory Rate Blood Pressure 148/70 O2 Sat by Pulse Oximetry Oxygen Delivery Method Room Air Oxygen Flow Rate FIO2% 08/24/24 07:39 08/24/24 07:45 08/24/24 08:00 Temperature Pulse Rate 73 92 H Respiratory Rate 15 20 Blood Pressure 150/75 O2 Sat by Pulse Oximetry 97 97 Oxygen Delivery Method Oxygen Flow Rate FIO2% 08/24/24 08:00 08/24/24 08:15 08/24/24 08:30 Temperature Pulse Rate 73 72 68 Respiratory Rate 12 14 16 Blood Pressure O2 Sat by Pulse Oximetry 96 91 L 93 L Oxygen Delivery Method Oxygen Flow Rate FIO2% 08/24/24 08:45 08/24/24 09:00 08/24/24 09:15 Temperature Pulse Rate 66 70 87 Respiratory Rate 18 13 20 Blood Pressure O2 Sat by Pulse Oximetry 95 95 96 Oxygen Delivery Method Oxygen Flow Rate FIO2% 08/24/24 09:30 08/24/24 09:45 08/24/24 10:00 Temperature Pulse Rate 102 H 78 80 Respiratory Rate 34 H 22 21 Blood Pressure O2 Sat by Pulse Oximetry 95 96 96 Oxygen Delivery Method Oxygen Flow Rate FIO2% 08/24/24 11:00 08/24/24 11:00 08/24/24 12:00 Temperature Pulse Rate 63 71 Respiratory Rate 12 12 Blood Pressure 159/79 O2 Sat by Pulse Oximetry 99 99 Oxygen Delivery Method Oxygen Flow Rate FIO2% 08/24/24 12:00 08/24/24 12:05 08/24/24 12:05 Temperature 97.8 F Pulse Rate 78 Respiratory Rate 20 Blood Pressure 171/80 167/81 O2 Sat by Pulse Oximetry 99 Oxygen Delivery Method Oxygen Flow Rate FIO2% 08/24/24 14:52 08/24/24 13:00 08/24/24 14:00 Temperature Pulse Rate 73 80 Respiratory Rate 20 14 13 Blood Pressure O2 Sat by Pulse Oximetry 99 100 Oxygen Delivery Method Oxygen Flow Rate FIO2% 08/24/24 15:00 08/24/24 15:20 08/24/24 15:20 Temperature Pulse Rate 73 81 Respiratory Rate 14 37 H Blood Pressure 142/89 O2 Sat by Pulse Oximetry 98 99 Oxygen Delivery Method Oxygen Flow Rate FIO2% 08/24/24 16:00 08/24/24 15:52 08/24/24 19:33 Temperature Pulse Rate 84 Respiratory Rate 24 20 Blood Pressure O2 Sat by Pulse Oximetry 97 Oxygen Delivery Method Nasal Cannula Oxygen Flow Rate 2 FIO2% 28 08/24/24 22:33 08/24/24 19:00 08/24/24 20:00 Temperature 97.9 F Pulse Rate 77 Respiratory Rate 24 27 H Blood Pressure 126/95 O2 Sat by Pulse Oximetry 98 Oxygen Delivery Method Room Air Nasal Cannula Oxygen Flow Rate 2 FIO2% 08/25/24 00:00 08/24/24 23:33 08/25/24 04:00 Temperature 98 F 98.1 F Pulse Rate 73 63 Respiratory Rate 14 14 12 Blood Pressure 91/50 100/57 O2 Sat by Pulse Oximetry 100 100 Oxygen Delivery Method Nasal Cannula Nasal Cannula Oxygen Flow Rate 2 2 FIO2% 08/24/24 17:00 08/24/24 17:07 08/24/24 17:07 Temperature Pulse Rate 0 L 71 Respiratory Rate 23 Blood Pressure 148/75 O2 Sat by Pulse Oximetry Oxygen Delivery Method Oxygen Flow Rate FIO2% 08/24/24 18:00 08/24/24 19:00 08/24/24 20:00 Temperature Pulse Rate 98 H 79 75 Respiratory Rate 20 16 22 Blood Pressure O2 Sat by Pulse Oximetry 91 L 95 97 Oxygen Delivery Method Oxygen Flow Rate FIO2% 08/24/24 20:25 08/24/24 20:25 08/24/24 21:00 Temperature Pulse Rate 77 68 Respiratory Rate 27 H 19 Blood Pressure 126/95 O2 Sat by Pulse Oximetry 88 L 98 Oxygen Delivery Method Oxygen Flow Rate FIO2% 08/24/24 22:01 08/24/24 23:00 08/25/24 00:00 Temperature Pulse Rate 87 67 73 Respiratory Rate 13 32 H Blood Pressure O2 Sat by Pulse Oximetry 99 100 96 Oxygen Delivery Method Oxygen Flow Rate FIO2% 08/25/24 00:01 08/25/24 00:01 08/25/24 01:00 Temperature Pulse Rate 71 69 Respiratory Rate 22 11 L Blood Pressure 91/50 O2 Sat by Pulse Oximetry 97 100 Oxygen Delivery Method Oxygen Flow Rate FIO2% 08/25/24 02:00 08/25/24 03:00 08/25/24 04:00 Temperature Pulse Rate 56 L 76 63 Respiratory Rate 15 14 12 Blood Pressure O2 Sat by Pulse Oximetry 100 100 100 Oxygen Delivery Method Oxygen Flow Rate FIO2% 08/25/24 04:00 08/25/24 05:00 08/25/24 06:00 Temperature Pulse Rate 74 68 Respiratory Rate 19 11 L Blood Pressure 100/57 O2 Sat by Pulse Oximetry 100 100 Oxygen Delivery Method Oxygen Flow Rate FIO2% 08/25/24 07:00 08/25/24 08:00 08/25/24 08:30 Temperature Pulse Rate 65 76 Respiratory Rate 13 0 L Blood Pressure 107/53 O2 Sat by Pulse Oximetry 100 99 Oxygen Delivery Method Oxygen Flow Rate FIO2% 08/25/24 08:30 08/25/24 07:00 Temperature 97.9 F Pulse Rate 76 Respiratory Rate 13 Blood Pressure O2 Sat by Pulse Oximetry 97 Oxygen Delivery Method Room Air Oxygen Flow Rate FIO2% Labs: Laboratory Last Values WBC 7.5 X10^3/uL (3.6-10.0) 08/25/24 06:35 RBC 4.24 X10^6/uL (3.5-5.4) 08/25/24 06:35 Hgb 12.9 g/dL (12.0-16.0) 08/25/24 06:35 Hct 37.4 % (36.0-47.0) 08/25/24 06:35 MCV 88.2 fL (80.0-100.0) 08/25/24 06:35 MCH 30.4 pg (27.0-34.0) 08/25/24 06:35 MCHC 34.5 g/dL (33.0-35.0) 08/25/24 06:35 RDW 13.3 % (11.6-16.5) 08/25/24 06:35 Plt Count 226 X10^3/uL (150.0-450.0) 08/25/24 06:35 Plt Count Comment Adequate (ADEQUATE) 08/25/24 06:35 MPV 8.0 fL (7.4-11.0) 08/25/24 06:35 Neut % (Auto) 42.6 % (42.0-75.0) 08/25/24 06:35 Lymph % (Auto) 40.7 % (21.0-51.0) 08/25/24 06:35 [place] % (Auto) 14.9 % (0.0-13.0) H 08/25/24 06:35 Eos % (Auto) 1.2 % (0.9-2.9) 08/25/24 06:35 Baso % (Auto) 0.6 % (0.2-1.0) 08/25/24 06:35 Neut # (Auto) 3.2 x10^3/uL (2.2-4.8) 08/25/24 06:35 Lymph # (Auto) 3.1 X10^3/uL (1.3-2.9) H 08/25/24 06:35 [place] # (Auto) 1.1 x10^3/uL (0.3-0.8) H 08/25/24 06:35 Eos # (Auto) 0.1 x10^3/uL (0.0-0.2) 08/25/24 06:35 Baso # (Auto) 0.0 X10^3/uL (0.0-0.1) 08/25/24 06:35 Absolute Nucleated RBC 0.1 /100WBC 08/25/24 06:35 Plt Morphology Comment Normal (NORMAL) 08/25/24 06:35 RBC Morphology Normal (NORMAL) 08/25/24 06:35 Sodium 143 mmol/L (136-145) 08/25/24 06:35 Corrected Sodium TNP 08/25/24 06:35 Potassium 3.1 mmol/L (3.5-5.1) L 08/25/24 06:35 Chloride 106 mmol/L (98-107) 08/25/24 06:35 Carbon Dioxide 26.5 mmol/L (21-32) 08/25/24 06:35 BUN 9 mg/dL (7-18) 08/25/24 06:35 Creatinine 0.68 mg/dL (0.55-1.02) 08/25/24 06:35 Est GFR (MDRD) Af Amer > 60 (>60) 08/25/24 06:35 Est GFR (MDRD) Non-Af > 60 (>60) 08/25/24 06:35 Glucose 91 mg/dL (65-99) 08/25/24 06:35 Lactic Acid 1.1 mmol/L (0.4-2.0) 08/23/24 20:10 Calcium 8.9 mg/dL (8.5-10.1) 08/25/24 06:35 Corrected Calcium TNP 08/25/24 06:35 Total Bilirubin 0.70 mg/dL (0.2-1.0) 08/25/24 06:35 AST 23 Units/L (15-37) 08/25/24 06:35 ALT 31 Units/L (12-78) 08/25/24 06:35 Alkaline Phosphatase 77 Units/L (46-116) 08/25/24 06:35 Total Protein 7.0 g/dL (6.4-8.2) 08/25/24 06:35 Albumin 3.5 g/dL (3.4-5.0) 08/25/24 06:35 Globulin 3.5 g/dL (2.5-4.5) 08/25/24 06:35 Albumin/Globulin Ratio 1.0 Ratio (1.1-2.1) L 08/25/24 06:35 Specimen Type Catherized urine 08/23/24 20:26 Urine Color Yellow (YELLOW) 08/23/24 20:26 Urine Appearance Clear (CLEAR) 08/23/24 20:26 Urine pH 6.0 (5.0 - 8.0) 08/23/24 20:26 Ur Specific [employer] 1.025 (1.000-1.030) 08/23/24 20: Urine Protein 2+ (NEGATIVE) 08/23/24 20: Urine Glucose (UA) Negative (NEGATIVE) 08/23/24 20: Urine Ketones 3+ (NEGATIVE) 08/23/24 20: Urine Blood 2+ (NEGATIVE) 08/23/24 20: Urine Nitrite Negative (NEGATIVE) 08/23/24 20: Urine Bilirubin Negative (NEGATIVE) 08/23/24 20: Urine Urobilinogen 1+ (NORMAL) 08/23/24 20: Ur Leukocyte Esterase 1+ (NEGATIVE) 08/23/24 20: Urine RBC None seen /HPF (0-3) 08/23/24 20: Urine WBC 0-2 /HPF (0-5) 08/23/24 20: Ur Squamous Epith Cells Few /HPF (NEGATIVE) 08/23/24 20: Urine Bacteria Trace /HPF (NEGATIVE) 08/23/24 20: Ur Culture Indicated? No/not indicated 08/23/24 20: Urine Opiates Screen Negative (NEG=<300) 08/23/24 20: Urine Methadone Screen Negative (NEG=<300) 08/23/24 20: Ur Barbiturates Screen Negative (NEG=<200) 08/23/24 20: Ur Phencyclidine Scrn Negative (NEG=<25) 08/23/24 20: Ur Amphetamines Screen Negative (NEG=<1000) 08/23/24 20: U Benzodiazepines Scrn Negative (NEG=<200) 08/23/24 20: Urine Cocaine Screen Negative (NEG=<300) 08/23/24 20: U Marijuana (THC) Screen Positive (NEG=<50) A 08/23/24 20: SARS-CoV-2 (PCR) Negative (NEGATIVE) 08/23/24 20: Influenza Type A (PCR) Negative (NEGATIVE) 08/23/24 20: Influenza Type B (PCR) Negative (NEGATIVE) 08/23/24 20: RSV (PCR) Negative (NEGATIVE) 08/23/24 20: Reason For Visit: AMA/SOB/HYPOKALEMIA Discharge Diagnosis All Active Problems (Updated 08/24/24 @ 02:28 by ALESSANDRA SHAHID) Bronchitis (Acute) Nausea & vomiting (Acute) Abdominal pain (Acute) AMS (altered mental status) (Acute) SOB (shortness of breath) (Acute) Hypokalemia (Acute) Plan of Treatment: Continue with present treatment and follow up plan. Pt is to keep follow up appointment as instructed and take medications as ordered. Discharge Medications Discharge Medications: No Known Allergies Allergy (Verified 08/24/24 07:41) CONTINUE taking the following medications clonazepam 0.5 mg tablet 0.5 mg PO TID 08/23/24 [History] gabapentin 600 mg tablet 60 mg PO DAILY 08/23/24 [History] oxybutynin chloride 10 mg tablet,extended release 24 hr 10 mg PO DAILY 08/23/24 [History] pregabalin 75 mg capsule 75 mg PO BID pain 08/23/24 [History] quetiapine 50 mg tablet 50 mg PO BID 08/23/24 [History] venlafaxine 150 mg capsule,extended release 24 hr 150 mg PO QAM anxiety 08/23/24 [History] venlafaxine 75 mg tablet,extended release 24 hr 75 mg PO QAM anxiety 08/23/24 [History] New Prescriptions ondansetron 4 mg disintegrating tablet 4 mg PO Q8H PRN nausea and vomiting #20 tabs 08/25/24 [Rx] potassium chloride 20 mEq tablet,extended release 20 meq PO QDAY 5 days #5 tabs 08/25/24 [Rx] Discharge Disposition Discharge Disposition: To home Discharge Condition: Stable Discharge Plan Discharge Plan Hospital Course: Ms Fuchs is a 59y/o female with a PMH of ASAD, MDD, arthritis presented with AMS and N/V. She reports being sick for the past few days with nausea. She was noted to be confused on admission. ER work up showed normal CT-brain and CXR. Labs showed K 2.9, UA was negative. Patient continued to be drowsy so was admitted for further management. She does take a combination of meds that can cause lethargy and sedation. This morning, she is resting, complains about being nauseous, phenergan was given. Denies diarrhea or abdominal pain. She is more alert and able to answer questions. She denied taking any of her home meds yesterday. She was initially started on clear liquids and diet was advanced as tolerated. Her labs were monitored daily and electrolytes replaced as needed. Patient's home medications were resumed when she was more awake and alert. She was tolerating oral intake. She was stable to be discharged home and follow-up with PCP Patient Disposition: 01 HOME, SELF-CARE Condition: Stable Health Concerns: Post Hospitalization: new medications and changes needed to prevent readmission or further decline. Pt educated and given instructions on all concerns. Care Plan Goals: Problem: Fluid Volume Deficit Goal: Maintain/Improved Adequate hydration. Instructions: Follow provided instructions. Follow up with primary physician as directed. Contact primary care physician or report to the closest Emergency Room if condition worsens. Plan of Treatment: Continue with present treatment and follow up plan. Pt is to keep follow up appointment as instructed and take medications as ordered. Prescription drug monitoring program results: PDMP reviewed and no concerns identified Prescriptions: New ondansetron 4 mg tablet,disintegrating 4 mg PO Q8H PRN (Reason: nausea and vomiting) Qty: 20 0RF Continued gabapentin 600 mg tablet 60 mg PO DAILY oxybutynin chloride 10 mg tablet extended release 24hr 10 mg PO DAILY clonazepam 0.5 mg tablet 0.5 mg PO TID Patient Comments: [NO ORIGINAL SIG] venlafaxine 150 mg capsule,extended release 24hr 150 mg PO QAM pregabalin 75 mg capsule 75 mg PO BID quetiapine 50 mg tablet 50 mg PO BID Patient Comments: [NO ORIGINAL SIG] venlafaxine 75 mg tablet extended release 24hr 75 mg PO QAM Orders to Discharge Patient Discharge Orders: Discharge (Routine); Ordered 08/25/24 Ordered By: Rhonda Quevedo Follow ups/Referrals Follow ups/Referrals: Nataliia Blanc [Primary Care Provider] - 08/26/24 3:30 pm Instructions Instructions: Nausea, Adult, [id number] Stand Alone Forms: Find Help Web Site, Post Hospital Follow Up Care
== END 2024-08-25 17:30 | disposition home or self-care (01) ==
LOC: ER 19:29 → ICU 19:29
PROVIDERS: ADMIT Internal Medicine; ATTEND Internal Medicine
DX: F12.90 Cannabis use, unspecified, uncomplicated; R05.8 Other specified cough; R06.02 Shortness of breath; E87.6 Hypokalemia; Z03.818 Encounter for observation for suspected exposure to other biological agents ruled out; F41.8 Other specified anxiety disorders; F41.0 Panic disorder [episodic paroxysmal anxiety]; R41.82 Altered mental status, unspecified; E80.6 Other disorders of bilirubin metabolism